=== PATIENT | female | born 1990 | race Caucasian/White ===

== ENCOUNTER 2018-02-03 03:59 | Emergency (ER) | payer MEDICAID ==
[~2018-02-03] VITALS: Ht 152.4 cm; Wt 63.5 kg
[~2018-02-03 03:59] MED LIST: ETON68IM ID; OMEP20EC6; [UNRECOGNIZED DRUG - CODE] PO
[2018-02-03 04:03] VITALS: BP 123/74
--- NOTE | 2018-02-03 04:03 | NUR ---
TO BED # 6 AMBULATORY, REPORT GIVEN TO NORY PELAYO
--- NOTE | 2018-02-03 04:05 | NUR ---
PT PRESENTED ER WITH C/O LUMP AND PAIN TO THE LEFT BREAST X 3 DAYS. PT STATED SHE WAS PALPATING BREASTS AND FOUND A LUMP ON HER LEFT BREAST. PAIN LEVEL IS 2/10 AT THIS TIME. UPON ASSESSMENT FOUND A PALPABLE HARD, NON MOVING LUMP ON LEFT BREAST. NO SIGN OF EDEMA OR REDNESS TO SIGHT. PT IS A/O X 4. SKIN IS PINK/WARM/DRY; PT DENIES ANY FEVER AT THIS TIME; VSS; PATIENT POSITIONED FOR COMFORT; HOB ELEVATED; BEDRAILS UP X1; BED DOWN. ER MD MADE AWARE OF PT STATUS.
[2018-02-03 06:40] VITALS: BP 123/74
--- NOTE | 2018-02-03 06:40 | NUR ---
Patient discharged with v/s stable. Written and verbal after care instructions given and explained. Patient verbalized understanding. Ambulatory with steady gait. All questions addressed prior to discharge. Advised to follow up with PMD.
== END 2018-02-03 06:40 | disposition home or self-care (01) ==
LOC: MED 03:59
DX: N63.20 Unspecified lump in the left breast, unspecified quadrant (principal); Z79.899 Other long term (current) drug therapy
CPT/HCPCS: 76641; 99284; Q0092

== ENCOUNTER 2019-03-29 13:49 | Emergency (ER) | payer MEDICAID ==
[~2019-03-29] VITALS: Ht 149.9 cm; Wt 59.4 kg
[~2019-03-29 13:49] MED LIST changes: -OMEP20EC6; +OMEP20EC9
[2019-03-29 14:06] VITALS: BP 107/74
--- NOTE | 2019-03-29 14:14 | NUR ---
28 Y/O FEMALE BIB SELF FOR EPIGASTRIC PAIN. DENIES N/V/D, DENIES F/C. PAIN IS A 5/10. ABDOMEN SOFT AND ROUND; ABDOMINAL SOUNDS HEARD THROUGHOUT. SLIGHT TENDERNESS UPON PALPATION. ERMD MADE AWARE OF STATUS. PMH:DENIES RX:STACIE (2013) NKDA
[2019-03-29] MEDS ORDERED: DICYCLOMINE HCL LIQUID 20 MG, ALUMINUM HYD/MAG/SIMETHICONE 30 ML, LIDOCAINE VISCOUS 2% ... PO ONE ×3 (14:20)
[2019-03-29] MEDS ORDERED: DICYCLOMINE HCL LIQUID 10 MG/5 ML UDC ONE (14:42)
[2019-03-29] MEDS ORDERED: LIDOCAINE VISCOUS 2% 20 ML UDC ONE (14:42)
[2019-03-29] MEDS ORDERED: ALUMINUM HYD/MAG/SIMETHICONE 30 ML UDC ONE (14:42)
[2019-03-29 15:15] VITALS: BP 107/74
--- NOTE | 2019-03-29 15:15 | NUR ---
Patient discharged with v/s stable. Written and verbal after care instructions given and explained. Patient alert, oriented and verbalized understanding of instructions. Ambulatory with steady gait. All questions addressed prior to discharge. ID band removed. Patient advised to follow up with PMD. Rx of NITROFURANTOIN; BENTYL; ZOFRAN given. Patient educated on indication of medication including possible reaction and side effects. Opportunity to ask questions provided and answered.
== END 2019-03-29 15:15 | disposition home or self-care (01) ==
LOC: MED 13:49
DX: N39.0 Urinary tract infection, site not specified (principal); Z79.899 Other long term (current) drug therapy
CPT/HCPCS: 81002; 81025; 87086; 99283

== ENCOUNTER 2023-07-24 19:56 | Emergency (ER) | payer MEDICAID ==
[~2023-07-24] VITALS: Ht 152.4 cm; Wt 66.2 kg
[2023-07-24 20:21] VITALS: BP 123/84; PULSE 98; RESP 16; TEMP 99; O2SAT 98
[2023-07-24 20:45] LABS: BASOPHILS # (AUTO) 0.1 K/uL (0.00-0.22); BASOPHILS % (AUTO) 0.6 % (0.0-2.0); EOSINOPHILS # (AUTO) 0.1 K/uL (0-0.4); EOSINOPHILS % (AUTO) 1.1 % (0.0-4.0); HEMATOCRIT 41.9 % (36-48); HEMOGLOBIN 14.4 g/dL (12.0-16.0); LYMPHOCYTES # (AUTO) 2.9 K/uL (2.5-16.5); LYMPHOCYTES % (AUTO) 27.7 % (20.5-51.1); MEAN CORPUSCULAR HEMOGLOBIN 31 pg (27-31); MEAN CORPUSCULAR HGB CONC 34 g/dL (33-37); MEAN CORPUSCULAR VOLUME 89.8 fL (80-94); MONOCYTES # (AUTO) 0.5 K/uL (0.8-1.0); NEUTROPHILS # (AUTO) 6.9 K/uL (1.8-7.7); NEUTROPHILS % (AUTO) 65.6 % (42.2-75.2); PLATELET COUNT (AUTO) 340 K/uL (140-450); RED BLOOD CELL COUNT(AUTO) 4.66 MIL/uL (4.20-5.40); RED CELL DISTRIBUTION WIDTH 13.4 % (11.6-13.7); WHITE BLOOD COUNT (AUTO) 10.5 K/uL (4.8-10.8)
[2023-07-24 20:46] LABS: APPEARANCE,URINE CLEAR (CLEAR); BILIRUBIN,URINE NEGATIVE (NEGATIVE); BLOOD, URINE 2+ (NEGATIVE); COLOR,URINE YELLOW (YELLOW); LEUKOCYTE ESTERASE ,URINE NEGATIVE (NEGATIVE); NITRITE, URINE NEGATIVE (NEGATIVE); PROTEIN,URINE NEGATIVE (NEGATIVE); UGLUCOSE NEGATIVE (NEGATIVE); UROBILINOGEN,URINE 0.2 EU/dL (0.2 - 1)
[2023-07-24 20:57] LABS: ANION GAP 11.7 (8-16); CALCIUM 9.2 mg/dL (8.5-10.1); CARBON DIOXIDE 29.3 mmol/L (21-32); CREATININE 1.2 mg/dL (0.6-1.3)
[2023-07-24 21:01] LABS: ALBUMIN 3.9 g/dL (3.4-5.0); BILIRUBIN,DIRECT 0.1 mg/dL (0.0-0.3); TOTAL BILIRUBIN 0.3 mg/dL (0.0-1.0)
[2023-07-24] MEDS ORDERED: IBUP-2213 PO (23:17)
== END 2023-07-24 23:21 | disposition home or self-care (01) ==
LOC: MED 19:56
DX: N93.9 Abnormal uterine and vaginal bleeding, unspecified (principal); Z79.899 Other long term (current) drug therapy
CPT/HCPCS: 36415; 76830; 80048; 80076; 81003; 81025; 83690; 85025; 99284